=== PATIENT | male | born 1950 | race Caucasian/White ===

== ENCOUNTER 2016-07-20 06:05 | Day surgery (SDC) | payer MEDICARE, BC ==
[~2016-07-20] VITALS: Ht 175.3 cm; Wt 127.0 kg
[~2016-07-20 06:05] MED LIST: BAYER CHEWABLE81 MG PO; CELLCEPT250 MG PO; DIOVAN80 MG PO; MAGNESIUM OXID250 MG PO; METOPROLOL TART50 MG PO; PEPCID40 MG PO; PREDNISONE5 MG PO; TACROLIMUS ANHYD1 MG PO; ULORIC40 MG PO; VALIUM10 MG PO; VITAMIN D50000 UNIT PO; XANAX1 MG PO
[2016-07-20 06:20] VITALS: Ht 175.3 cm; Wt 127.0 kg
[2016-07-20 06:34] LABS: ANION GAP 11.5 mmol/L (8-16); CALCIUM 8.8 mg/dL (8.5-10.1); CARBON DIOXIDE 27.9 mmol/L (21.0-32.0); CREATININE - SERUM 1.5 mg/dL (0.6-1.3); POTASSIUM - SERUM 4.4 mmol/L (3.5-5.1)
[2016-07-20 06:49] LABS: BASOPHILS 0.5 % (0.0-2.0); EOSINOPHILS 2.3 % (0-7); HEMATOCRIT 50.2 % (42.0-54.0); HEMOGLOBIN 16.4 g/dL (13.5-17.5); IMMATURE GRANULOCYTES 0.3 % (0-5); LYMPHOCYTES 39.5 % (15-50); MCH 32.3 pg (26.0-34.0); MCHC 32.7 g/dL (31.0-37.0); MCV 98.8 fL (80.0-100.0); MEAN PLATELET VOLUME 11.1 fL (7.4-10.4); MONOCYTES 9.7 % (2-11); NEUTROPHILS 47.7 % (40-80); PLATELET COUNT 110 10x3/uL (130-400); RBC 5.08 10x6/uL (4.20-6.10); RDW 13.3 % (11.5-14.5); WBC 7.5 10x3/uL (4.8-10.8)
[2016-07-20] MEDS ORDERED: ANUSOL-HC25 MG RC (08:03)
--- NOTE | 2016-07-20 09:25 | NUR ---
0905 DRESSED, AWAKE & ALERT. GIVEN DISCHARGE INSTRUCTIONS INCLUDING: MED REC LISTING RX FOR ANUSO HC ELECTRONICALLY SENT BY DR. RASHEED TO [facility], SHEET LISTING NSAIDS TO AVOID FOR 14 DAYS, HIGH FIBER DIET HANDOUTS, & D/C INSTRUCTIONS SHEET POST ENDOSCOPIC PROCEDURES. PT & VOICED UNDERSTANDING. TO PRIVATE CAR PER WHEELCHAIR BY THIS NURSE. HOME WITH MRS. PAGE. Rajendra CHAVEZ R.N.
--- NOTE | 2016-07-23 14:40 | OP ---
PATIENT NAME: CHRISTINA STONER MEDICAL RECORD: [id number] :50 LOCATION:[facility] ADMISSION DATE: SURGEON: GENTRY RASHEED MD DATE OF OPERATION: 07/20/2016 PROCEDURE: Colonoscopy with biopsy and polypectomy. REFERRING PHYSICIAN: Patrick Washburn MD INDICATIONS: Mr. Stoner is a delightful 66-year-old gentleman with a history of renal transplant and colon polyps. He presents for outpatient surveillance colonoscopy. PREMEDICATIONS: Total IV anesthesia (propofol 300 mg), ASA 4, and Versed 1 mg. INSTRUMENT: Olympus video colonoscope. PROCEDURE AND FINDINGS: After receiving informed consent, Mr. Stoner was placed in the left lateral decubitus position and sedated as per anesthesia. After achieving an adequate level of sedation, digital rectal exam was performed that showed no external hemorrhoidal tags, fissures or fistulas, normal sphincter tone, no palpable rectal masses. Colonoscope was introduced per rectally and advanced to the cecum without difficulty. The cecum, IC valve, and appendiceal orifice were identified. The IC valve appeared to have a lipoma on it and multiple biopsies were taken from the IC valve, and the lipomatous structure on the IC valve. As the colonoscope was withdrawn, careful inspection was made of the alexandre of the colon. Overall mucosa had normal vascular and fold pattern. A fair prep was present. Multiple lavages were performed. There were few scattered diverticula seen in the sigmoid colon. In the mid rectum was a 0.5 cm sessile polyp removed with biopsy forceps technique and in the distal rectum just proximal to the dentate line, was a flat 0.3 cm sessile polyp that was cold biopsied. Mild internal hemorrhoids were noted. Mr. Stoner tolerated the procedure well, no immediate complications. ASSESSMENT: 1. Lipomatous IC valve, status post biopsy. 2. Mild sigmoid diverticulosis coli. 3. Two rectal polyps status post biopsy and polypectomy. 4. Mild internal hemorrhoids. RECOMMENDATIONS: 1. Follow up histopathology. 2. Avoid nonsteroidal anti-inflammatory drugs for 14 days post polypectomy. 3. High fiber diet. 4. Surveillance colonoscopy in 3 years. TRANSINT:[id number] Voice Confirmation ID: [id number] DOCUMENT ID: [id number] OPERATIVE REPORT [id number] CHRISTINA STONER GENTRY RASHEED MD at 1440 CC: KRIS WASHBURN MD [id number] DICTATION DATE: 07/20/16 0750 STOCKKEEPER: 07/20/16 0848 [facility] 07/20/16 [id number] [place] [address]
== END 2016-07-20 09:05 | disposition home or self-care (01) ==
LOC: D.OPS 06:05
PROVIDERS: Anesthesiology
DX: Z12.11 Encounter for screening for malignant neoplasm of colon (principal); D17.79 Benign lipomatous neoplasm of other sites; K57.30 Diverticulosis of large intestine without perforation or abscess without bleeding; K62.1 Rectal polyp; K64.8 Other hemorrhoids

== ENCOUNTER 2018-07-18 09:02 | Day surgery (SDC) | payer MEDICARE, BC ==
[~2018-07-18] VITALS: Ht 175.3 cm; Wt 122.7 kg
[~2018-07-18 09:02] MED LIST changes: +ANUSOL-HC25 MG RC
[2018-07-18 09:30] LABS: HEMATOCRIT 52.6 % (42.0-54.0); HEMOGLOBIN 17.6 g/dL (13.5-17.5); MCH 31.7 pg (26.0-34.0); MCHC 33.5 g/dL (31.0-37.0); MCV 94.6 fL (80.0-100.0); MEAN PLATELET VOLUME 10.4 fL (7.4-10.4); RBC 5.56 10x6/uL (4.20-6.10); WBC 10.2 10x3/uL (4.8-10.8)
[2018-07-18] MEDS ORDERED: ELIQUIS5 MG PO (10:28)
[2018-07-18] MEDS ORDERED: NORVASC5 MG PO (10:32)
[2018-07-18] MEDS ORDERED: BETAPACE 120 M120 MG PO (10:35)
[2018-07-18] MEDS ORDERED: ZYLOPRIM300 MG PO (10:35)
[2018-07-18] MEDS ORDERED: LASIX20 MG PO (10:36)
[2018-07-18] MEDS ORDERED: ZOCOR10 MG PO (10:37)
[2018-07-18 10:44] VITALS: Ht 175.3 cm; Wt 122.7 kg
--- NOTE | 2018-07-18 13:19 | NUR ---
DC INSTRUCTIONS GIVEN TO PT/FAMILY. STATE UNDERSTANDING. DC'D IV CATH FULLY INTACT.
--- NOTE | 2018-07-18 13:29 | NUR ---
PT LEFT UNIT VIA WC AT 1329
--- NOTE | 2018-07-18 15:55 | OP ---
PATIENT NAME: CHRISTINA STONER MEDICAL RECORD: [id number] :50 LOCATION:[facility] ADMISSION DATE: SURGEON: GENTRY RASHEED MD DATE OF OPERATION: 07/18/2018 PROCEDURE: EGD with biopsy. PRIMARY CARE PHYSICIAN: Dr. Chad Erickson. HIGH DENSITY PRESS LABORER: Dr. Patrick Washburn SKIN CARE CONSULTANT: Dr. Manning. INDICATIONS: Mr. Stoner is a delightful 68-year-old gentleman with a history of end-stage renal disease status post renal transplant, atrial fibrillation and history of Salazar's esophagus. His last EGD was 04/21/2016 with finding showing short segment Salazar's esophagus, small hiatal hernia, gastric erosions, small gastric polyp and mild gastritis. Antral biopsies were negative for Helicobacter pylori. Esophageal biopsies showed mild goblet like change in the mucosa consistent with Salazar's esophagus. He has been on famotidine 40 mg p.o. b.i.d., he presents for outpatient surveillance EGD. PREMEDICATIONS: Total IV anesthesia (propofol 250 mg) (ASA IV). INSTRUMENT: Olympus video gastroscope. PROCEDURE AND FINDINGS: After receiving informed consent, Mr. Stoner's posterior pharynx was anesthetized with Cetacaine spray, placed in left lateral decubitus position and sedated as per anesthesia. After achieving an adequate level of sedation, gastroscope was introduced per orally and advanced to the duodenum without difficulty. The esophageal mucosa was notable for 4 or 5 small islands of salmon-colored mucosa in the distal third of the esophagus, which were biopsied. Small sliding type hiatal hernia was present. Gastric mucosa was notable for mild prepyloric and antral erythema and antral biopsies were obtained to rule out Helicobacter pylori. There were no mucosal changes in the body of the stomach, cardia or fundus. Pylorus was patent and competent. Duodenal mucosa was without erythema or ulcers, appeared normal through the second portion. Gastroscope was then withdrawn. Mr. Stoner tolerated the procedure well, no immediate complications. ASSESSMENT: 1. Short segment Salazar's esophagitis, status post biopsy. 2. Small sliding type hiatal hernia. 3. Mild gastritis. RECOMMENDATIONS: 1. Follow up histopathology. 2. Reflux precautions. 3. Continue famotidine 40 mg p.o. b.i.d. 4. Surveillance EGD in 3 years. 5. Resume Eliquis today. TRANSINT:[id number] Voice Confirmation ID: [id number] DOCUMENT ID: [id number] OPERATIVE REPORT [id number] CHRISTINA STONER TERRI MD at 1555 CC: Xu ERICKSON JOHN WAYNE [phone] DICTATION DATE: 07/18/18 1241 HUMAN RESOURCES SUPERVISOR: 07/18/18 1418 [facility] 07/18/18 [id number] [place] [address]
== END 2018-07-18 13:29 | disposition home or self-care (01) ==
LOC: D.OPS 09:02
PROVIDERS: Anesthesiology; ATTEND Internal Medicine Gastroenterology
DX: K22.70 Barrett's esophagus without dysplasia (principal); K44.9 Diaphragmatic hernia without obstruction or gangrene; K29.50 Unspecified chronic gastritis without bleeding; N18.6 End stage renal disease; Z94.0 Kidney transplant status; I48.91 Unspecified atrial fibrillation; Z01.812 Encounter for preprocedural laboratory examination

== ENCOUNTER 2018-12-14 07:31 | Day surgery (SDC) | payer MEDICARE, BC ==
[~2018-12-14] VITALS: Ht 172.7 cm; Wt 115.7 kg
[~2018-12-14 07:31] MED LIST changes: +BETAPACE 120 M120 MG PO; +ELIQUIS5 MG PO; +GLUCOTROL ER2.5 MG PO; +LASIX20 MG PO; +NORVASC5 MG PO; +VASOTEC5 MG PO; +ZOCOR10 MG PO; +ZYLOPRIM300 MG PO
[2018-12-14 07:55] LABS: BASOPHILS 0.4 % (0-2); EOSINOPHILS 1.2 % (0-7); HEMATOCRIT 48.8 % (42.0-54.0); HEMOGLOBIN 16.8 g/dL (13.5-17.5); IMMATURE GRANULOCYTES 0.3 % (0-5); LYMPHOCYTES 27.7 % (15-50); MCH 32.5 pg (26.0-34.0); MCHC 34.4 g/dL (31.0-37.0); MCV 94.4 fL (80.0-100.0); MONOCYTES 10.3 % (2-11); NEUTROPHILS 60.1 % (40-80); RBC 5.17 10x6/uL (4.20-6.10); WBC 9.2 10x3/uL (4.8-10.8)
[2018-12-14 08:05] LABS: PLATELET COUNT 121 10x3/uL (130-400)
[2018-12-14 08:07] LABS: ANION GAP 11.2 mmol/L (8-16); CALCIUM 9.8 mg/dL (8.5-10.1); CARBON DIOXIDE 30.2 mmol/L (21.0-32.0); CREATININE - SERUM 1.4 mg/dL (0.6-1.3); POTASSIUM - SERUM 4.4 mmol/L (3.5-5.1)
[2018-12-14 09:10] VITALS: Ht 172.7 cm; Wt 115.7 kg
[2018-12-14 09:14] LABS: APTT 27.5 SECONDS (22.8-39.4); INR 1.09 (0.85-1.17); PROTIME 13.6 SECONDS (11.6-15.0)
[2018-12-14] MEDS ORDERED: HYDROCODON-ACE1 EA10 PO (12:40)
--- NOTE | 2018-12-14 15:05 | NUR ---
1330-REC'D FROM RR, DROWSY, EASYILY AROUSED IN VERBAL STIMULI. DENIES PAIN, VSS. IV PATENT TO RIGHT HAND AT KVO. AT BEDSIDE, CL IN EASY REACH.
--- NOTE | 2018-12-14 15:07 | NUR ---
1505-DISCHARGE CRITERIA MET. IV REMOVED WITH CATH INTACT WITH DISPOSED INTO SHARPS CONTAINER. COVERED WITH BANDAID. REVIEWED DISCHARGE INSTRUCTIONS WITH PT AND SPOUSE, VERBALIZED UNDERSTANDING. ESCORTED OUT VIA W/C WITH SPOUSE TO DRIVE HOME.
--- NOTE | 2018-12-21 07:19 | OP ---
PATIENT NAME: CHRISTINA EPPERSON MEDICAL RECORD: [id number] :50 LOCATION:[facility] ADMISSION DATE: SURGEON: ERVIN BLACKBURN MD DATE OF OPERATION: 12/14/2018 PREOPERATIVE DIAGNOSES: 1. Bleeding internal hemorrhoids. 2. Hypertension. 3. Diabetes mellitus. 4. Obstructive sleep apnea. 5. History of renal transplant. POSTOPERATIVE DIAGNOSES: 1. Bleeding internal hemorrhoids. 2. Hypertension. 3. Diabetes mellitus. 4. Obstructive sleep apnea. 5. History of renal transplant. PROCEDURE: 1. PPH stapled hemorrhoidectomy. 2. Hemorrhoid banding times 2. SURGEON: Ervin Blackburn MD REPORT OF PROCEDURE: The patient was placed in the jackknife prone position and the perianal region was prepped and draped in sterile fashion. An anoscope was inserted and a 360 degree inspection was performed. The patient had internal hemorrhoids with the largest of these being a left lateral hemorrhoid. On the left anterior aspect, there was some hemorrhoidal tissue present as well. The left lateral hemorrhoid was very friable. We inserted the PPH anoscope and sutured this down on all sides using interrupted 2-0 silks. The 2-0 Prolene was used to make a pursestring and with this pursestring, we were able to insert the PPH stapler. A large ring of tissue was removed from the patient's distal rectum. Upon reviewing the staple lines, it appeared to be intact with a couple of areas of bleeding, which were oversewn with 2-0 chromics. The patient still had some hemorrhoidal tissue present internally. Bands were placed times 2 on the left anterior and the left lateral hemorrhoid. At the conclusion of the case, there was no sign of any active bleeding. We irrigated out the anus with normal saline. We then packed the anus with Americaine dipped Gelfoam and placed a dressing over the anus. COMPLICATIONS: None. CONDITION: Stable. ANESTHESIA: General endotracheal. BLOOD LOSS: Minimal. TRANSINT:[id number] Voice Confirmation ID: [id number] DOCUMENT ID: [id number] OPERATIVE REPORT [id number] CHRISTINA EPPERSON ERVIN BLACKBURN MD at 0719 CC: GENTRY RASHEED MD and KRISTIAN CASTORENA [phone] DICTATION DATE: 12/14/18 1243 [place] CLERK: 12/14/18 1255 [facility] 12/14/18 [id number] [place] [id number]
== END 2018-12-14 15:05 | disposition home or self-care (01) ==
LOC: D.OPS 07:31 → D.PAN 10:30 → D.OPS 10:45 → D.PAN 11:15 → D.OPS 11:15
PROVIDERS: Anesthesiology; ATTEND Surgery
DX: K64.8 Other hemorrhoids (principal); I10 Essential (primary) hypertension; E11.9 Type 2 diabetes mellitus without complications; G47.33 Obstructive sleep apnea (adult) (pediatric); Z94.0 Kidney transplant status; Z01.812 Encounter for preprocedural laboratory examination

== ENCOUNTER → 2019-01-10 09:56 | Outpatient (CLI) | payer MEDICARE, BC ==
[2018-12-14 09:10] VITALS: BMI 38.8
[~2019-01-10 09:56] MED LIST changes: +HYDROCODON-ACE1 EA10 PO
== END | disposition home or self-care (01) ==
LOC: D.RT 09:56
PROVIDERS: ATTEND Internal Medicine Pulmonary Disease
DX: R93.89 Abnormal findings on diagnostic imaging of other specified body structures (principal); R06.00 Dyspnea, unspecified

== ENCOUNTER → 2019-10-23 09:45 | Outpatient (CLI) | payer MEDICARE, BC ==
[2018-12-14 09:10] VITALS: BMI 38.8
== END | disposition home or self-care (01) ==
LOC: D.CT 07-11 11:30
PROVIDERS: ATTEND Internal Medicine Pulmonary Disease
DX: R91.8 Other nonspecific abnormal finding of lung field (principal)